=== PATIENT | female | born 1940 | race Hispanic/Latino ===

== ENCOUNTER 2016-12-29 15:18 | Inpatient (IN) | payer MEDICARE ==
[2016-12-29] MEDS ORDERED: NACL 0.9% 1000 ML 1,000 ML IV ONE (16:17)
[2016-12-29 16:45] LABS: Basophils % (Auto) 0.8 % (0.0-1.8); Eosinophils % (Auto) 1.5 % (0.0-4.3); Platelet Count 393 K/mm3 (140-440); Red Cell Distribution Width 13.6 % (13.2-15.2)
[2016-12-29 16:54] LABS: Hematocrit 40.1 % (30.3-42.9); Hemoglobin 13.3 gm/dl (10.1-14.3); Mean Corpuscular HGB Conc 33 % (30-34); Mean Corpuscular Hemoglobin 29 pg (28-32); Mean Corpuscular Volume 88 fl (79-97); Red Blood Count 4.54 M/mm3 (3.65-5.03); White Blood Count 9.1 K/mm3 (4.5-11.0)
[2016-12-29 16:57] LABS: INR 1.08 (0.87-1.13)
[2016-12-29 16:58] LABS: Partial Thromboplastin Time 30.7 Sec. (24.2-36.6)
--- NOTE | 2016-12-29 17:01 | Emergency Department Report ---
ED GI Bleed HPI - General Chief complaint: GI Bleed Stated complaint: VAGINAL BLEEDING Time Seen by Provider: 12/29/16 16:45 Source: patient, family Mode of arrival: Ambulatory Limitations: No Limitations - History of Present Illness Initial comments: Patient is 76 years old female coming today with rectal bleeding started last night, patient stated that she is being passing clots several times since yesterday, patient brought a a bag that has blood and clots in it. Patient stated that she is being little bit dizzy since yesterday and weak. Patient denied any shortness of breath chest pain. Patient denied any vomiting. Denied any blood thinner medication she is only taking aspirin 325 mg. She stated she is been having back pain last few weeks and she was using Mobic. MD complaint: gross hematochezia -: Last night Context: history of GI bleed - Related Data Home Medications Medication Instructions Recorded Confirmed Last Taken Levothyroxine Sodium [Synthroid] 0.5 tab PO QDAY 12/15/15 12/15/15 12/15/15 Omeprazole Magnesium [PriLOSEC Otc] 40 mg PO QDAY 12/15/15 12/15/15 2 Days Ago Sertraline [Zoloft] 50 mg PO QDAY 12/15/15 12/15/15 2 Days Ago Previous Rx's Medication Instructions Recorded Last Taken Type Aspirin EC [Aspirin Enteric Coated 325 mg PO QDAY #30 tablet. 12/16/15 Unknown Rx TAB] AtorvaSTATin [Lipitor] 40 mg PO QHS #30 tablet 12/16/15 Unknown Rx Metoprolol Tartrate [Lopressor] 50 mg PO DAILY #30 tablet 12/16/15 Unknown Rx Allergies Allergy/AdvReac Type Severity Reaction Status Date / Time meperidine HCl [From Demerol] Allergy Severe STOMACH Verified 12/29/16 16:16 CRAMPS,NAUSEA,VOMITTING ED Review of Systems ROS: Stated complaint: VAGINAL BLEEDING Other details as noted in HPI Comment: All other systems reviewed and negative Constitutional: denies: chills, fever Respiratory: denies: cough, shortness of breath, SOB with exertion Cardiovascular: denies: chest pain, palpitations Gastrointestinal: abdominal pain, hematochezia. denies: nausea, vomiting, hematemesis Genitourinary: denies: dysuria, frequency, hematuria Neurological: denies: headache ED Past Medical Hx - Past Medical History Previous Medical History?: Yes Hx Hypertension: Yes Hx CVA: Yes (12/13/15) Hx Heart Attack/AMI: Yes Hx Congestive Heart Failure: No Hx Diabetes: No Hx Asthma: No Hx COPD: No Additional medical history: hypothyroidism. high cholesterol - Surgical History Past Surgical History?: Yes Hx Open Heart Surgery: Yes (triple bypass 2007) Additional Surgical History: hysterectomy - Social History Smoking Status: Never Smoker Substance Use Type: None - Medications Home Medications: Home Medications Medication Instructions Recorded Confirmed Last Taken Type Levothyroxine Sodium [Synthroid] 0.5 tab PO QDAY 12/15/15 12/15/15 12/15/15 History Omeprazole Magnesium [PriLOSEC Otc] 40 mg PO QDAY 12/15/15 12/15/15 2 Days Ago History Sertraline [Zoloft] 50 mg PO QDAY 12/15/15 12/15/15 2 Days Ago History Aspirin EC [Aspirin Enteric Coated 325 mg PO QDAY #30 tablet.dr 12/16/15 Unknown Rx TAB] AtorvaSTATin [Lipitor] 40 mg PO QHS #30 tablet 12/16/15 Unknown Rx Metoprolol Tartrate [Lopressor] 50 mg PO DAILY #30 tablet 12/16/15 Unknown Rx ED Physical Exam - General Limitations: No Limitations General appearance: alert, in no apparent distress - Head Head exam: Present: normocephalic - ENT ENT exam: Present: normal exam - Neck Neck exam: Present: normal inspection - Respiratory Respiratory exam: Present: normal lung sounds bilaterally. Absent: wheezes, rales, rhonchi, decreased breath sounds, prolonged expiratory - Cardiovascular Cardiovascular Exam: Present: regular rate, normal rhythm, normal heart sounds - GI/Abdominal GI/Abdominal exam: Present: soft, normal bowel sounds. Absent: distended, tenderness, guarding, rebound, rigid, organomegaly, mass, bruit, pulsatile mass , hernia - Rectal Rectal exam: Present: heme (+) stool, bloody stool. Absent: hemorrhoids, mass, tenderness - Extremities Exam Extremities exam: Present: normal inspection, pedal edema. Absent: tenderness, normal capillary refill, joint swelling - Back Exam Back exam: Present: normal inspection. Absent: tenderness, CVA tenderness (R), CVA tenderness (L) - Neurological Exam Neurological exam: Present: alert, oriented X3, CN II-XII intact, normal gait - Skin Skin exam: Present: warm, intact, normal color ED Course Vital Signs 12/29/16 16:11 Temperature 97.8 F Pulse Rate 82 Respiratory 16 Rate Blood Pressure 121/61 O2 Sat by Pulse 100 Oximetry - Reevaluation(s) Reevaluation #1: 12/29/16 17:[address] Willoughby for admission he agreed to admit to her service. ED Medical Decision Making - Lab Data Result diagrams: 12/29/16 16:19 12/29/16 16:19 Critical care attestation.: If time is entered above; I have spent that time in minutes in the direct care of this critically ill patient, excluding procedure time. ED Disposition Clinical Impression: GI bleeding Disposition: -09 OP ADMIT IP TO THIS HOSP Is pt being admited?: Yes Condition: Stable Referrals: PRIMARY CARE, [Primary Care Provider] - 3-5 Days Forms: Accompanied Note
[2016-12-29 17:06] LABS: Alanine Aminotransferase 15 units/L (7-56); Albumin 3.2 g/dL (3.9-5); Albumin/Globulin Ratio 0.9 %; Alkaline Phosphatase 104 units/L (35-129); Anion Gap 18 mmol/L; BUN/Creatinine Ratio 34; Blood Urea Nitrogen 27 mg/dL (7-17); Calcium 8.4 mg/dL (8.4-10.2); Carbon Dioxide 22 mmol/L (22-30); Chloride 101.8 mmol/L (98-107); Glucose 100 mg/dL (65-100); Lipase 37 units/L (13-60); Potassium 4.2 mmol/L (3.6-5.0); Sodium 138 mmol/L (137-145); Total Protein 6.7 g/dL (6.3-8.2)
[2016-12-29] MEDS ORDERED: PROTONIX IV ONE (17:30)
--- NOTE | 2016-12-30 01:09 | Event Note ---
Date: 12/29/16 See H/p in reports Lower GI beed HLD Hypothyroidism
[2016-12-30] MEDS ORDERED: MILK OF MAGNESIA PO PRN (01:10)
[2016-12-30] MEDS ORDERED: TYLENOL PO PRN (01:10)
[2016-12-30] MEDS ORDERED: DILAUDID IV PRN (01:10)
[2016-12-30] MEDS ORDERED: DULCOLAX PR PRN (01:10)
[2016-12-30] MEDS ORDERED: ZOFRAN IV PRN (01:10)
[2016-12-30] MEDS ORDERED: D5NS 1,000 ML IV SCH (02:00)
[2016-12-30 02:47] LABS: Hematocrit 34.6 % (30.3-42.9); Hemoglobin 11.7 gm/dl (10.1-14.3)
[2016-12-30] MEDS: PEPCID IV SCH ×3 (05:23→21:59)
[2016-12-30 08:24] LABS: Hematocrit 33.9 % (30.3-42.9); Hemoglobin 11.6 gm/dl (10.1-14.3)
--- NOTE | 2016-12-30 08:41 | History and Physical Report ---
CHIEF COMPLAINT: Bright red blood per rectum since yesterday. HISTORY OF PRESENT ILLNESS: A 76-year-old female with a past medical history of depression, gastroesophageal reflux disease, and hypothyroidism, comes in for bright red blood per rectum since yesterday. Passing clots. The patient brought a bag with blood and clots in it. Feels dizzy and weak on standing. The patient takes aspirin for prophylaxis. No syncope. No chest pain. No fever, no chills. PAST MEDICAL HISTORY: Significant for: 1. Hypothyroidism. 2. Gastroesophageal reflux disease. 3. Depression. CURRENT MEDICATIONS: Synthroid 50 mcg daily, Prilosec 40 mg daily, Zoloft 50 mg daily. PAST SURGICAL HISTORY: Significant for triple bypass surgery, hysterectomy. SOCIAL HISTORY: Does not smoke. No alcohol. FAMILY HISTORY: Significant for hypertension. REVIEW OF SYSTEMS: HEENT: No sore throat. No postnasal drip. NECK: No neck pain. CARDIOVASCULAR AND RESPIRATORY: No shortness of breath. No chest pain. No wheezing. GASTROINTESTINAL: Lower gastrointestinal bleed present. No hematemesis. Bright red blood per rectum present. GENITOURINARY: No dysuria, no flank pain. MUSCULOSKELETAL: No joint pains. CENTRAL NERVOUS SYSTEM: No syncope, no seizures. SKIN: No rashes. ENDOCRINE: No polyuria or polydipsia. A 14-point review of systems is done. PHYSICAL EXAMINATION: GENERAL: Elderly female, lying in bed. VITAL SIGNS: Blood pressure is 115/53. Orthostatic blood pressure dropping down to 100/50. Heart rate going up to 96 from 76, temperature 97.6, respiratory rate is 18. HEENT: Unremarkable. Pupils equal and reactive. NECK: Supple, no lymphadenopathy, no thyromegaly. LUNGS: Clear to auscultation and percussion. Good air entry. CVS: S1, S2 heard. No gallop, no murmur, no rub. Apical impulse in left fifth intercostal space in midclavicular line. ABDOMEN: Soft and benign. No hepatosplenomegaly. No guarding, no rigidity. Hernial orifices are normal. EXTREMITIES: Good pedal pulses. No pedal edema. CENTRAL NERVOUS SYSTEM: Alert and oriented x 4. Nonfocal exam. SKIN: Normal. RECTAL: Occult blood positive. Bright red blood on the glove finger. LABORATORY DATA: Significant for hemoglobin of 13.3, hematocrit of 40.1. Electrolytes are normal. BUN 27, creatinine 0.8, albumin is slightly low at 3.2. ASSESSMENT AND PLAN: 1. Lower gastrointestinal bleed, possible diverticulosis versus colitis. The patient to get GI consult and possible colonoscopy. Monitor hematocrit and hemoglobin and transfuse as necessary. GI consulted. Keep the patient n.p.o. IV famotidine started. 2. Hypothyroidism. We will hold the Synthroid for the time being. Should not hurt her for holding for 24 to 48 hours. 3. Hyperlipidemia. We will hold the statins. 4. Depression. We will hold the Zoloft. 5. DVT prophylaxis, SCDs only. JOB# [id number] VSDara/NTS
[2016-12-30 13:45] LABS: Hematocrit 34.3 % (30.3-42.9); Hemoglobin 11.7 gm/dl (10.1-14.3)
--- NOTE | 2016-12-30 15:40 | Gastroenterology Consultation ---
<RICKSARANRISA Stephens - Last Filed: 12/30/16 16:00> History of Present Illness - Reason for Consult Consult date: 12/30/16 GI bleed Requesting physician: CLAIRE HOUSTON - History of Present Illness Patient is a 76 y/o female with h/o HTN, CAD s/P CABG, CVA, NE, hypothyroidism and high cholesterol who was admitted for GI bleed. This afternoon, pt was sitting in bedside chair in no acute distress. Family at bedside. She reports generalized abd pain and rectal bleeding x 2 days. Patient had a sample of stool with her that is dark mixed with bright red. She states her abd pain is improving and reports last BM was yesterday morning. No active signs of bleeding overnight or today. Denies fever, wt loss, CP, SOB, dizziness, N/V, hematemesis, diarrhea, or constipation. Takes 325mg ASA daily and states she has taken Mobic for a few days and Ibuprofen daily x 6 weeks for back pain. Fhx of stomach cancer with her mother diagnosed in her 60s. Last EGD in 2015 revealed a schatzki ring which required dilation and a small hiatal hernia. Last colonoscopy in 2006, results unknown. Past History Past Medical History: acute NE, hypertension, hyperlipidemia, hypothyroidism, stroke Past Surgical History: CABG, hysterectomy Social history: denies: smoking Family history: cancer (mother with stomach CA) Medications and Allergies Allergies Allergy/AdvReac Type Severity Reaction Status Date / Time meperidine HCl [From Demerol] Allergy Severe STOMACH Verified 12/29/16 16:16 CRAMPS,NAUSEA,VOMITTING Home Medications Medication Instructions Recorded Confirmed Last Taken Type Levothyroxine Sodium [Synthroid] 0.5 tab PO QDAY 12/15/15 12/29/16 12/15/15 History Aspirin EC [Aspirin Enteric Coated 325 mg PO QDAY #30 tablet.dr 12/16/15 Unknown Rx TAB] AtorvaSTATin [Lipitor] 40 mg PO QHS #30 tablet 12/16/15 12/29/16 Unknown Rx Metoprolol Tartrate [Lopressor] 50 mg PO DAILY #30 tablet 12/16/15 12/29/16 Unknown Rx Famotidine [Pepcid] 20 mg PO QDAY 12/29/16 12/29/16 Unknown History Active Meds: Active Medications Acetaminophen (Tylenol) 650 mg PO Q4H PRN PRN Reason: Pain MILD(1-3)/Fever >100.5/RODRIGUEZ Bisacodyl (Dulcolax) 10 mg ID QDAY PRN PRN Reason: Constipation unrelieved by MOM Famotidine (Pepcid) 20 mg IV BID [facility] Last Admin: 12/30/16 10:48 Dose: 20 mg Hydromorphone HCl (Dilaudid) 0.5 mg IV Q3H PRN PRN Reason: Pain , Severe (7-10) Dextrose/Sodium Chloride (D5ns) 1,000 mls @ 100 mls/hr IV DIRECT [facility] Last Admin: 12/30/16 05:22 Dose: 100 mls/hr Magnesium Hydroxide (Milk Of Magnesia) 30 ml PO Q4H PRN PRN Reason: Constipation Ondansetron HCl (Zofran) 4 mg IV Q3H PRN PRN Reason: N/V unrelieved by Reglan Review of Systems - Review of Systems All systems: negative Gastrointestinal: abdominal pain (generalized-improving), melena, hematochezia Exam - Constitutional Vital Signs: Temp Pulse Resp BP Pulse Ox 97.7 F 95 H 18 111/56 97 12/30/16 05:03 12/30/16 10:54 12/30/16 05:03 12/30/16 10:54 12/30/16 10:54 General appearance: no acute distress, well-nourished - EENT Eyes: PERRL, EOM intact ENT: hearing intact - Neck Neck: supple, normal ROM - Respiratory Respiratory: bilateral: CTA - Cardiovascular Rhythm: regular Heart Sounds: Present: S1 & S2 Extremities: No edema - Gastrointestinal General gastrointestinal: Present: soft, tender (mild generalzied tenderness), non-distended, normal bowel sounds - Integumentary Integumentary: Present: warm, dry - Neurologic Neurological: alert and oriented x3 - Labs CBC & Chem 7: 12/30/16 13:11 12/29/16 16:19 Lab Results: Laboratory Results - last 24 hr 12/30/16 12/30/16 12/30/16 02:20 07:14 13:11 Hgb 11.7 11.6 11.7 Hct 34.6 33.9 34.3 Assessment and Plan 1.GI bleed 2.melena 3.hematochezia -HGB 11.7 -continue to monitor H/H and transfuse as needed -hold blood thinning medications -no signs of active bleeding overnight or this am -hemodynamically stable -will start on PPI -clear liquid diet today, then NPO after MN -will schedule for EGD and colonoscopy in am -will follow <DEBORAH MURPHY - Last Filed: 12/30/16 16:26> Medications and Allergies Active Meds: Active Medications Acetaminophen (Tylenol) 650 mg PO Q4H PRN PRN Reason: Pain MILD(1-3)/Fever >100.5/RODRIGUEZ Bisacodyl (Dulcolax) 10 mg ID QDAY PRN PRN Reason: Constipation unrelieved by MOM Famotidine (Pepcid) 20 mg IV BID [facility] Last Admin: 12/30/16 10:48 Dose: 20 mg Hydromorphone HCl (Dilaudid) 0.5 mg IV Q3H PRN PRN Reason: Pain , Severe (7-10) Dextrose/Sodium Chloride (D5ns) 1,000 mls @ 100 mls/hr IV DIRECT [facility] Last Admin: 12/30/16 05:22 Dose: 100 mls/hr Magnesium Hydroxide (Milk Of Magnesia) 30 ml PO Q4H PRN PRN Reason: Constipation Ondansetron HCl (Zofran) 4 mg IV Q3H PRN PRN Reason: N/V unrelieved by Reglan Pantoprazole Sodium (Protonix) 40 mg IV QDAY [facility] Exam - Constitutional Vital Signs: Temp Pulse Resp BP Pulse Ox 97.7 F 95 H 18 111/56 97 12/30/16 05:03 12/30/16 10:54 12/30/16 05:03 12/30/16 10:54 12/30/16 10:54 - Labs CBC & Chem 7: 12/30/16 13:11 12/29/16 16:19 Lab Results: Laboratory Results - last 24 hr 12/30/16 12/30/16 12/30/16 02:20 07:14 13:11 Hgb 11.7 11.6 11.7 Hct 34.6 33.9 34.3 Assessment and Plan - Patient Problems (1) GI bleeding Current Visit: Yes Status: Acute Qualifiers: GI bleed type/associated pathology: G Gastritis type: G Plan to address problem: The patient was seen personally and examined. GI bleeding has mixed characteristics and she has been taking NSAIDS. EGD and colonoscopy are planned for tomorrow AM. Thank you for asking us to see her in consultation. Deborah Murphy MD
[2016-12-30] MEDS ORDERED: GOLYTELY PO ONE (16:02)
--- NOTE | 2016-12-30 17:10 | Progress Note ---
Assessment and Plan /Acute GI bleeding GI bleeding has mixed characteristics and she has been taking NSAIDS. EGD and colonoscopy are planned for tomorrow AM. NPO after midnight /HTN on metoprolol at home cont to monitor BP /Hypothyroidism will resume synthroid /HLD cont statin /h/o depression no acute issue /GERD cont pepcid iv BID /dvt px SCD Subjective Date of service: 12/30/16 Interval history: Pt seen and examined no further episode of rectal bleeding Objective - Constitutional Vitals: Vital Signs - 12hr 12/30/16 12/30/16 12/30/16 06:44 08:00 10:54 Pulse Rate 90 80 95 H Blood Pressure 111/56 O2 Sat by Pulse 97 Oximetry 12/30/16 16:53 Pulse Rate 80 Blood Pressure O2 Sat by Pulse Oximetry General appearance: Present: no acute distress, well-nourished - EENT Eyes: PERRL, EOM intact ENT: hearing intact, clear oral mucosa Ears: bilateral: normal - Neck Neck: supple, normal ROM - Respiratory Respiratory effort: normal Respiratory: bilateral: CTA - Cardiovascular Rhythm: regular Heart Sounds: Present: S1 & S2. Absent: gallop, rub Extremities: pulses intact, No edema, normal color, Full ROM - Gastrointestinal General gastrointestinal: Present: soft, non-tender, non-distended, normal bowel sounds - Integumentary Integumentary: clear, warm, dry - Musculoskeletal Musculoskeletal: 1, strength equal bilaterally - Neurologic Neurologic: moves all extremities - Psychiatric Psychiatric: memory intact, appropriate mood/affect, intact judgment & insight - Labs CBC & Chem 7: 12/31/16 18:33 12/31/16 06:00
[2016-12-30] MEDS: PROTONIX IV SCH (18:29)
[2016-12-30 19:28] LABS: Hematocrit 35.1 % (30.3-42.9); Hemoglobin 11.5 gm/dl (10.1-14.3)
[2016-12-31 06:31] LABS: Basophils % (Auto) 0.7 % (0.0-1.8); Eosinophils % (Auto) 3.9 % (0.0-4.3); Hematocrit 34.2 % (30.3-42.9); Hemoglobin 11.5 gm/dl (10.1-14.3); Mean Corpuscular HGB Conc 34 % (30-34); Mean Corpuscular Hemoglobin 30 pg (28-32); Mean Corpuscular Volume 88 fl (79-97); Platelet Count 311 K/mm3 (140-440); Red Blood Count 3.89 M/mm3 (3.65-5.03); Red Cell Distribution Width 13.2 % (13.2-15.2); White Blood Count 4.5 K/mm3 (4.5-11.0)
[2016-12-31] MEDS ORDERED: WATER FOR IRRIG STERILE ONE (08:05)
[2016-12-31] MEDS ORDERED: WATER FOR IRRIG STERILE IR ONE (08:05)
[2016-12-31 08:37] LABS: Anion Gap 17 mmol/L; BUN/Creatinine Ratio 22; Blood Urea Nitrogen 11 mg/dL (7-17); Calcium 8.5 mg/dL (8.4-10.2); Carbon Dioxide 21 mmol/L (22-30); Chloride 112.2 mmol/L (98-107); Glucose 110 mg/dL (65-100); Potassium 3.7 mmol/L (3.6-5.0); Sodium 146 mmol/L (137-145)
[2016-12-31] MEDS: NACL 0.9% 1000 ML 1,000 ML IV SCH ×2 (09:05→11:09)
--- NOTE | 2016-12-31 09:27 | Anesthesia Consultation ---
Anesthesia Consult and Med Hx Date of service: 12/31/16 - Airway Anesthetic Teeth Evaluation: Dentures, Partials ROM Head & Neck: Adequate Mental/Hyoid Distance: Adequate Mallampati Class: Class II Intubation Access Assessment: Good - Pulmonary Exam CTA: Yes - Cardiac Exam Cardiac Exam: RRR - Pre-Operative Health Status ASA Pre-Surgery Classification: ASA3, Emergency Proposed Anesthetic Plan: MAC - Pulmonary Hx Asthma: No COPD: No Hx Pneumonia: Yes - Cardiovascular System Hx Hypertension: No Hx Coronary Artery Disease: Yes (Prior CABG) Hx Heart Attack/AMI: Yes (x2) Hx Angina: No (denies chest pain and tightness) - Central Nervous System CVA: Yes (no residual) - Endocrine Hx End Stage Renal Disease: No Hx Hypothyroidism: Yes - Additional Comments Anesthesia Medical History Comments: hypercholesterolemia
[2016-12-31] MEDS ORDERED: AMIDATE IV ONE (09:28)
--- NOTE | 2016-12-31 09:31 | Anesthesia Day of Surgery ---
Anesthesia Day of Surgery - Day of Surgery Patient H&P Reviewed: Yes Patient is NPO: Yes Beta Blockers: No (will give metoprolol IV)
[2016-12-31] MEDS ORDERED: LOPRESSOR IV ONE ×2 (09:33→10:00)
[2016-12-31] MEDS ORDERED: XYLOCAINE 2% INFILTRATI ONE (09:42)
--- NOTE | 2016-12-31 10:16 | Post Operative Note ---
Pre-op diagnosis: GI bleed Post-op diagnosis: other (diverticulosis, internal hemorrhoids, gastritis) Findings: EGD: gastritis (antrum), non-obstructing schatski ring, hiatal hernia Colonoscopy: severe diverticulosis, internal hemorrhoids Impression: likely diverticular bleed, old appearing blood seen in rectum. brown liquid stool seen as scope was advanced to proximal colon. No signs of active bleeding. Recommendations: -start clear liquid diet and advance as tolerated -high fiber diet -can likely discharge tomorrow if no further signs of bleeding -f/u in GI clinic after discharge -f/u path from biopsies of stomach Procedure: EGD with biopsies, colonoscopy Anesthesia: MAC Surgeon: JING CHAVEZ Estimated blood loss: minimal Pathology: list (Jar A - gastric biopsies) Specimen disposition: to lab Condition: stable Disposition: floor
--- NOTE | 2016-12-31 10:21 | Operative Report ---
Operative Report Operative Report: Date of procedure: 12/31/2016 Procedure: EGD with biopsies Pre-procedure diagnosis: GI bleed Post procedure diagnosis: Gastritis, non-obstructing schatski ring, hiatal hernia Endoscopist: Blaise Ambrosio Anesthesia: MAC Estimated blood loss: Minimal Procedure: After consent was obtained, the patient was placed in the left lateral decubitus position. The [employer] upper endoscope was inserted into the patient' s mouth under direct vision, and advanced to the 2nd portion of the duodenum without difficulty. The patient's vital signs were monitored continuously throughout the procedure. The patient tolerated the procedure well. The views of the mucosa were good. Findings: Esophagus: There was a widely patent, non-obstructing schatski ring in the lower third of the esophagus. There was a moderate sized hiatal hernia. Otherwise, the esophagus appeared normal. Stomach: Moderately erythematous mucosa in the antrum. Biopsies were obtained to rule out H pylori. Otherwise the stomach appeared normal. Duodenum: Normal duodenum, bile seen throughout the visualized portion. Impression: 1. Gastritis. Biopsies obtained 2. Non-obstructing Schatski ring Plan: -f/u path -proceed with colonoscopy -PPI daily before breakfast
--- NOTE | 2016-12-31 10:26 | Operative Report ---
Operative Report Operative Report: Date of procedure: 12/31/2016 Procedure: Colonoscopy Pre-procedure diagnosis: GI bleed Post procedure diagnosis: Severe diverticulosis, internal hemorrhoids Endoscopist: Blaise Ambrosio Anesthesia: MAC Estimated blood loss: None Procedure: After consent was obtained, the patient was placed in the left lateral decubitus position. The fujinon colonoscope was inserted into the rectum under direct vision, and advanced to the cecum without difficulty. The patient's vital signs were monitored continuously throughout the procedure. The quality of prep was fair. The views of the mucosa were adequate/fair. The patient tolerated the procedure well. Findings: Severe diverticulosis throughout the colon (more severe on left side). There was old appearing blood in the rectum, however there was brown liquid stool as the colonoscope was advanced. There were moderate sized internal hemorrhoids seen on retroflexion view. There were no signs of active bleeding, or other obvious source of bleeding identified besides above findings. Impression: 1. Barraza-diverticulosis - likely source of patient's recent bleeding. No signs of active bleeding at the time of procedure. There was old appearing blood in the rectum, which changed to brown stool as the scope was advanced into the colon. 2. Internal hemorrhoids Plan: -start clear liquid diet and advance as tolerated -high fiber diet -hemorrhoidal suppository/cream daily as needed -likely can be discharged home tomorrow if no further bleeding episodes today -f/u in GI clinic 1 month after discharge
--- NOTE | 2016-12-31 10:28 | Post Anesthesia Evaluation ---
- Post Anesthesia Evaluation Patient Participated: Yes Airway Patent: Yes Stable Respiratory Function: Yes Temp > 96.8F: Yes Pain Manageable: Yes Adequeate Hydration: Yes Anesthesia Complications: No
[2016-12-31] MEDS: PROTONIX IV SCH (11:09)
[2016-12-31] MEDS: PEPCID IV SCH ×2 (11:09→22:54)
[2016-12-31] MEDS ORDERED: NACL 0.9% 1000 ML 1,000 ML ONE (11:41)
--- NOTE | 2016-12-31 17:40 | Progress Note ---
Assessment and Plan /Acute GI bleeding likely 2/2 diverticular bleeding GI bleeding has mixed characteristics and she has been taking NSAIDS. s/p EGD and colonoscopy today showed diverticulosis resumed clear liquid diet, advance as tolerated /hypernatremia change iv fluid to 1/2 NS /HTN on metoprolol at home cont to monitor BP /Hypothyroidism resume synthroid /HLD start statin /h/o depression no acute issue /GERD cont pepcid iv BID /dvt px SCD Subjective Date of service: 12/31/16 Interval history: Pt seen and examined no further episode of rectal bleeding s/p EGD and colonoscopy today Objective - Exam Narrative Exam: General appearance: Present: no acute distress, well-nourished - EENT Eyes: PERRL, EOM intact ENT: hearing intact, clear oral mucosa Ears: bilateral: normal - Neck Neck: supple, normal ROM - Respiratory Respiratory effort: normal Respiratory: bilateral: CTA - Cardiovascular Rhythm: regular Heart Sounds: Present: S1 & S2. Absent: gallop, rub Extremities: pulses intact, No edema, normal color, Full ROM - Gastrointestinal General gastrointestinal: Present: soft, non-tender, non-distended, normal bowel sounds - Integumentary Integumentary: clear, warm, dry - Musculoskeletal Musculoskeletal: 1, strength equal bilaterally - Neurologic Neurologic: moves all extremities - Psychiatric Psychiatric: memory intact, appropriate mood/affect, intact judgment & insight - Constitutional Vitals: Vital Signs - 12hr 12/31/16 12/31/16 12/31/16 08:55 09:01 10:05 Temperature 98.3 F 98.3 F 98.6 F Pulse Rate 81 81 98 H Respiratory 17 17 20 Rate Blood Pressure 142/80 142/80 162/88 Blood Pressure [Left] O2 Sat by Pulse 95 95 97 Oximetry 12/31/16 12/31/16 12/31/16 10:24 10:35 11:15 Temperature 98.7 F Pulse Rate 88 92 H 85 Respiratory 88 H 92 H 18 Rate Blood Pressure 177/118 147/77 Blood Pressure 151/85 [Left] O2 Sat by Pulse 97 95 99 Oximetry - Labs CBC & Chem 7: 12/31/16 18:33 12/31/16 06:00 Labs: Abnormal lab results 12/31/16 12/31/16 Range/Units 06:00 06:00 Lymph % (Auto) 46.7 H (13.4-35.0) % [place] % (Auto) 11.5 H (0.0-7.3) % Seg Neutrophils % 37.2 L (40.0-70.0) % Seg Neutrophils # 1.7 L (1.8-7.7) K/mm3 Sodium 146 H D (137-145) mmol/L Chloride 112.2 H (98-107) mmol/L Carbon Dioxide 21 L (22-30) mmol/L Creatinine 0.5 L (0.7-1.2) mg/dL Glucose 110 H (65-100) mg/dL
[2016-12-31 19:00] LABS: Hematocrit 34.4 % (30.3-42.9); Hemoglobin 11.7 gm/dl (10.1-14.3)
[2017-01-01 02:18] LABS: Hematocrit 34.6 % (30.3-42.9); Hemoglobin 11.7 gm/dl (10.1-14.3); Mean Corpuscular HGB Conc 34 % (30-34); Mean Corpuscular Hemoglobin 30 pg (28-32); Mean Corpuscular Volume 88 fl (79-97); Platelet Count 338 K/mm3 (140-440); Red Blood Count 3.95 M/mm3 (3.65-5.03); Red Cell Distribution Width 13.2 % (13.2-15.2); White Blood Count 5.4 K/mm3 (4.5-11.0)
[2017-01-01 04:33] LABS: Hematocrit 33.5 % (30.3-42.9); Hemoglobin 11.4 gm/dl (10.1-14.3)
[2017-01-01 09:06] VITALS: BP 145/80
[2017-01-01] MEDS ORDERED: ECOTRIN PO SCH (10:00)
[2017-01-01] MEDS ORDERED: LOPRESSOR PO SCH (10:00)
[2017-01-01] MEDS ORDERED: LEVOTHYROXINE SODIUM PO SCH (10:00)
[2017-01-01 10:19] LABS: Anion Gap 16 mmol/L; BUN/Creatinine Ratio 12; Blood Urea Nitrogen 6 mg/dL (7-17); Calcium 8.5 mg/dL (8.4-10.2); Carbon Dioxide 21 mmol/L (22-30); Chloride 107.8 mmol/L (98-107); Glucose 149 mg/dL (65-100); Potassium 3.6 mmol/L (3.6-5.0); Sodium 141 mmol/L (137-145)
[2017-01-01] MEDS: PEPCID IV SCH (10:55)
[2017-01-01] MEDS: PROTONIX IV SCH (10:56)
--- NOTE | 2017-01-01 13:01 | Discharge Summary ---
Providers - Providers Date of Admission: 12/29/16 17:33 Date of discharge: 01/01/17 Attending physician: LUCAS SMITH 12/30/16 01:17 Consult to Physician [CONS] Routine Consulting Provider: RENU RAMOS Reason For Exam: Gi bleed Place consult to:: Francisco Notified:: yes Phone number called:: [phone] If yes, spoke with:: Maite Time called:: 09:30 Primary care physician: [facility] Hospitalization Condition: Stable Hospital course: Discharge diagnosis and management: /Acute GI bleeding likely 2/2 diverticular bleeding GI bleeding has mixed characteristics and she has been taking NSAIDS. s/p EGD and colonoscopy today showed diverticulosis resumed clear liquid diet, advance as tolerated /hypernatremia change iv fluid to 1/2 NS /HTN on metoprolol at home cont to monitor BP /Hypothyroidism resume synthroid /HLD start statin /h/o depression no acute issue /GERD cont pepcid iv BID /dvt px SCD Disposition: TO HOME OR SELFCARE Time spent for discharge: 32 minutes Core Measure Documentation - Palliative Care Palliative Care/ Comfort Measures: Not Applicable - Core Measures Any of the following diagnoses?: none Exam - Physical Exam Narrative exam: General appearance: Present: no acute distress, well-nourished - EENT Eyes: PERRL, EOM intact ENT: hearing intact, clear oral mucosa Ears: bilateral: normal - Neck Neck: supple, normal ROM - Respiratory Respiratory effort: normal Respiratory: bilateral: CTA - Cardiovascular Rhythm: regular Heart Sounds: Present: S1 & S2. Absent: gallop, rub Extremities: pulses intact, No edema, normal color, Full ROM - Gastrointestinal General gastrointestinal: Present: soft, non-tender, non-distended, normal bowel sounds - Integumentary Integumentary: clear, warm, dry - Musculoskeletal Musculoskeletal: 1, strength equal bilaterally - Neurologic Neurologic: moves all extremities - Psychiatric Psychiatric: memory intact, appropriate mood/affect, intact judgment & insight - Constitutional Vitals: Temp Pulse Resp BP Pulse Ox 98.1 F 91 H 18 145/80 94 01/01/17 09:05 01/01/17 10:54 01/01/17 09:05 01/01/17 10:54 01/01/17 09:05 Plan Activity: advance as tolerated Weight Bearing Status: Weight Bear as Tolerated Diet: other (high fibre diet) Additional Instructions: f/u with Gi in two weeks. Resume aspirin when cleared by GI as out pt Follow up with: PRIMARY CARE, [Primary Care Provider] - 3-5 Days Forms: Accompanied Note
--- NOTE | 2017-01-01 13:03 | Gastroenterology Progress Note ---
Assessment and Plan 1. Lower GI bleed - likely diverticular, no signs of further bleeding since procedures yesterday. H/H stable. advance diet today. okay to be discharged home from gi stand point, with outpatient follow-up in 1 month. will sign off, please call as needed or with questions. Subjective Date of service: 01/01/17 Principal diagnosis: GI bleed Interval history: pt denies further bleeding episodes overnight or today. she is hungry and requesting to eat. Denies abd pain. Objective - Constitutional Vitals: Temp Pulse Resp BP Pulse Ox 98.1 F 91 H 18 145/80 94 01/01/17 09:05 01/01/17 10:54 01/01/17 09:05 01/01/17 10:54 01/01/17 09:05 General appearance: no acute distress - Respiratory Respiratory effort: normal Respiratory: bilateral: CTA - Cardiovascular Rhythm: regular Heart Sounds: Present: S1 & S2 - Gastrointestinal General gastrointestinal: Present: soft, non-tender, non-distended - Integumentary Integumentary: Present: warm, dry - Neurologic Neurological: alert and oriented x3 - Psychiatric Psychiatric: appropriate mood/affect - Labs CBC & Chem 7: 01/01/17 03:57 01/01/17 09:49 Labs: Laboratory Results - last 24 hr 12/31/16 01/01/17 01/01/17 18:33 01:46 03:57 WBC 5.4 RBC 3.95 Hgb 11.7 11.7 11.4 Hct 34.4 34.6 33.5 MCV 88 MCH 30 MCHC 34 RDW 13.2 Plt Count 338 Sodium Potassium Chloride Carbon Dioxide Anion Gap BUN Creatinine Estimated GFR BUN/Creatinine Ratio Glucose Calcium 01/01/17 09:49 WBC RBC Hgb Hct MCV MCH MCHC RDW Plt Count Sodium 141 Potassium 3.6 Chloride 107.8 H Carbon Dioxide 21 L Anion Gap 16 BUN 6 L Creatinine 0.5 L Estimated GFR > 60 BUN/Creatinine Ratio 12 Glucose 149 H Calcium 8.5
[2017-01-02] MEDS ORDERED: SYNTHROID PO SCH (07:30)
== END 2017-01-01 15:17 | disposition home or self-care (01) | DRG 378 ==
LOC: ED 15:18 → 4A 17:33
PROVIDERS: ADMIT Internal Medicine; ATTEND Internal Medicine
PROC: 0DB68ZX Excision of Stomach, Via Natural or Artificial Opening Endoscopic, Diagnostic (ICD-10-PCS; principal; 2016-12-31)
PROC: 0DJD8ZZ Inspection of Lower Intestinal Tract, Via Natural or Artificial Opening Endoscopic (ICD-10-PCS; 2016-12-31)
DX: K57.31 Diverticulosis of large intestine without perforation or abscess with bleeding (principal); E87.0 Hyperosmolality and hypernatremia; E78.5 Hyperlipidemia, unspecified; E03.9 Hypothyroidism, unspecified; F32.9 Major depressive disorder, single episode, unspecified; Z96.89 Presence of other specified functional implants; I10 Essential (primary) hypertension; K64.8 Other hemorrhoids; K44.9 Diaphragmatic hernia without obstruction or gangrene; K22.2 Esophageal obstruction; I25.10 Atherosclerotic heart disease of native coronary artery without angina pectoris; K21.9 Gastro-esophageal reflux disease without esophagitis; Z90.710 Acquired absence of both cervix and uterus; Z82.49 Family history of ischemic heart disease and other diseases of the circulatory system; Z88.8 Allergy status to other drugs, medicaments and biological substances; Z79.82 Long term (current) use of aspirin; Z86.73 Personal history of transient ischemic attack (TIA), and cerebral infarction without residual deficits; I25.2 Old myocardial infarction; Z95.1 Presence of aortocoronary bypass graft; Z80.0 Family history of malignant neoplasm of digestive organs; K29.60 Other gastritis without bleeding
CPT/HCPCS: 36415; 80048; 80053; 83690; 85014; 85018; 85025; 85027; 85610; 85730; 86850; 86900; 86901; 88305; 88342; 93005; 93010; 96361; 96374; C9113; J7030; J7042

== ENCOUNTER 2018-11-22 06:02 | Day surgery (SDC) | payer MEDICARE ==
[2018-11-22] MEDS ORDERED: NACL 0.9% 500 ML 500 ML ONE (06:23)
[2018-11-22] MEDS ORDERED: ECOTRIN PO ONE ×2 (06:23→06:48)
[2018-11-22] MEDS ORDERED: NACL 0.9% 500 ML 500 ML IV SCH (07:00)
[2018-11-22] MEDS ORDERED: VERSED ONE (08:17)
[2018-11-22] MEDS ORDERED: HEPARIN 10,000 UNITS/10 ML ONE (08:18)
[2018-11-22] MEDS ORDERED: HEPARIN/NS 5000 UNIT/500ML(CATH LAB) 1,000 ML IR ONE (08:18)
[2018-11-22] MEDS ORDERED: XYLOCAINE 2% INFILTRATI ONE (08:18)
[2018-11-22] MEDS: SUBLIMAZE ONE ×2 (08:47→09:00)
[2018-11-22] MEDS: APRESOLINE ONE ×2 (08:55→09:02)
[2018-11-22] MEDS ORDERED: NITROGLYCERIN SYRINGE 3 ML ONE ×2 (08:58→08:59)
[2018-11-22] MEDS ORDERED: ULTRAM PO PRN (09:33)
--- NOTE | 2018-11-22 09:36 | Short Stay Summary ---
Short Stay Documentation Date of service: 11/22/18 - History H&P: obtained from office - Allergies and Medications Current Medications: Allergies meperidine HCl [From Demerol] Allergy (Severe, Verified 12/29/16 16:16) STOMACH CRAMPS,NAUSEA,VOMITTING Home Medications Medication Instructions Recorded Confirmed Last Taken Type Levothyroxine Sodium [Synthroid] 0.5 tab PO QDAY 12/15/15 11/22/18 11/21/18 History 0.5 tab AtorvaSTATin [Lipitor] 40 mg PO QHS #30 tablet 12/16/15 11/22/18 11/21/18 Rx 40mg Metoprolol Tartrate [Lopressor] 50 mg PO DAILY #30 tablet 12/16/15 11/22/18 11/21/18 Rx 50mg Aspirin 325 mg PO DAILY 11/22/18 11/22/18 11/21/18 History 325mg ISOSORBIDE MONOnitrate [Imdur ER] 30 mg PO DAILY 11/22/18 11/22/18 11/21/18 History 30mg Omeprazole 20 mg PO DAILY 11/22/18 11/22/18 11/21/18 History 20mg Active Medications Sodium Chloride (Nacl 0.9% 500 Ml) 500 mls @ 50 mls/hr IV DIRECT JOSE Stop: 11/22/18 16:59 - Brief post op/procedure progress note Date of procedure: 11/22/18 Pre-op diagnosis: angina Post-op diagnosis: same Procedure: see report Anesthesia: local Estimated blood loss: none Pathology: none - Disposition Condition at discharge: Good Disposition: DC-[id number] TO HOME OR SELFCARE - Discharge Diagnoses (1) Hypertension Status: Chronic Qualifiers: Hypertension type: essential hypertension Qualified Code(s): I10 - Essential (primary) hypertension (2) LBBB (left bundle branch block) Status: Chronic (3) Hyperlipemia, mixed Status: Chronic (4) CAD (coronary artery disease) Status: Chronic Qualifiers: Coronary Disease-Associated Artery/Lesion type: [place] artery [place] vs. transplanted heart: [place] heart Associated angina: with stable angina Qualified Code(s): I25.118 - Atherosclerotic heart disease of [place] coronary artery with other forms of angina pectoris (5) History of stroke Status: Chronic Short Stay Discharge Plan Activity: advance as tolerated Diet: low fat, low cholesterol, low salt Wound: keep clean and dry Follow up with: CHAI BAEZ MD [Primary Care Provider] - 7 Days
--- NOTE | 2018-11-22 09:38 | Cardiac Catherization Report ---
CLINICAL INFORMATION: This is a 78-year-old female with history of coronary artery disease with bypass, ARAIZA to diagonal and LAD, who has recurrent chest pain, on beta rona and nitrates and the patient despite negative stress test with normal LV function, there is suspected coronary artery disease. Procedure was done with moderate sedation, 1 mg Versed, 100 mcg of fentanyl. Sedation was 8:47 a.m., finished 9:09 a.m., which is 22 minutes of moderate sedation. Left heart catheterization performed via the right femoral artery, sterile technique, local anesthesia, 5-[place] short sheath inserted. Left system engaged with JL3.5 catheter. Left main is large and patent, bifurcates into LAD, proximal is diffusely diseased, mid becomes 100%, small diagonal one patent with diffuse disease. Circumflex medium caliber vessel, patent with mild luminal irregularities, goes into a medium caliber OM branch. Upper and lower branch that is patent with mild luminal irregularities. RCA engaged with JR4 catheter. There is a proximal 50-60% of a large caliber vessel, dominant, mid to distal patent, bifurcates into [id number] caliber PDA, PLV multiple branches. ARAIZA to LAD engaged with IM catheter, is a large caliber graft, free of disease of the ostium, body, and anastomosis site, feeds at the bifurcation and diagonal and mid LAD, which are [id number] caliber vessels that are patent with moderate tortuosity. LV gram done in RODERICK and MOHAMUD view shows normal LV function, LVEDP of 30 mmHg, LV is 210, aortic is 211/98. No significant gradient across the aortic valve on pullback. A 5-[place]ait[place] catheters all taken over guidewire, 5-[place] groin sheath was discontinued. Manual pressure held. No hematoma, no bleeding. SUMMARY: Left main patent, LAD mid 100% with patent ARAIZA to diagonal and LAD. Circumflex patent, OM1 patent with mild luminal irregularities. RCA proximal 50-60%, mid to distal patent and normal LV function. We will treat medically. Discussed in detail with the patient and the patient's family. JOB# [id number] PRABHU/NTS
[2018-11-22] MEDS ORDERED: ZOFRAN ONE (11:04)
[2018-11-22] MEDS ORDERED: ZOFRAN IV ONE (11:05)
[2018-11-22 13:38] VITALS: BP 136/77
== END 2018-11-22 13:30 | disposition home or self-care (01) ==
LOC: CATHLABREC 06:02
PROVIDERS: ATTEND Internal Medicine
DX: I25.10 Atherosclerotic heart disease of native coronary artery without angina pectoris (principal); I10 Essential (primary) hypertension; I44.7 Left bundle-branch block, unspecified; E03.9 Hypothyroidism, unspecified; E78.2 Mixed hyperlipidemia; K21.9 Gastro-esophageal reflux disease without esophagitis; M19.90 Unspecified osteoarthritis, unspecified site; Z98.890 Other specified postprocedural states; Z95.1 Presence of aortocoronary bypass graft; Z79.82 Long term (current) use of aspirin; Z98.49 Cataract extraction status, unspecified eye; Z98.51 Tubal ligation status; Z90.710 Acquired absence of both cervix and uterus; Z86.2 Personal history of diseases of the blood and blood-forming organs and certain disorders involving the immune mechanism; Z88.8 Allergy status to other drugs, medicaments and biological substances; Z86.73 Personal history of transient ischemic attack (TIA), and cerebral infarction without residual deficits
CPT/HCPCS: 93005; 93010; 93459; 96374; 99156; J0360; J1644; J2250; J2405; J3010; J7040; Q9967